=== PATIENT | male | born 1985 | race Caucasian/White ===

== ENCOUNTER 2018-02-24 12:27 | Emergency (ER) | payer OTHER, MEDICAID ==
[~2018-02-24] VITALS: Ht 185.4 cm; Wt 81.7 kg
[~2018-02-24 12:27] MED LIST: NOHOMEMEDICATIONS; PERCOCET 5-3251 EACH PO; TAMSULOSIN HCL0.4 MG PO
[2018-02-24] MEDS ORDERED: CYCLOGYL15 ML OPHTHALMIC (13:34)
[2018-02-24] MEDS ORDERED: ERYTHROMYCIN E3.5 G2 INTRAOCULR (13:34)
[2018-02-24 13:53] VITALS: BP 128/75
== END 2018-02-24 13:54 | disposition home or self-care (01) ==
LOC: M.ERS 12:27
DX: S05.01XA Injury of conjunctiva and corneal abrasion without foreign body, right eye, initial encounter (principal); F17.200 Nicotine dependence, unspecified, uncomplicated; Z88.8 Allergy status to other drugs, medicaments and biological substances; X58.XXXA Exposure to other specified factors, initial encounter; Y93.89 Activity, other specified; Y92.89 Other specified places as the place of occurrence of the external cause; Y99.8 Other external cause status